=== PATIENT | female | born 1980 | race Hispanic/Latino ===

== ENCOUNTER 2017-12-18 08:06 | Day surgery (SDC) | payer OTHER ==
[~2017-12-18] VITALS: Ht 162.6 cm; Wt 82.6 kg
[~2017-12-18 08:06] MED LIST: ALEVE220 MG PO
[2017-12-18 08:59] VITALS: BP 103/51
[2017-12-18] MEDS ORDERED: ENDOCET 5-3251 EACH PO (10:41)
[2017-12-18 11:45] VITALS: BP 106/52
[2017-12-18 12:45] VITALS: BP 112/64
[2017-12-18 15:15] VITALS: BP 95/63
== END 2017-12-18 15:15 | disposition home or self-care (01) ==
LOC: SDC 08:06
PROC: 0UBC7ZX Excision of Cervix, Via Natural or Artificial Opening, Diagnostic (ICD-10-PCS; principal; 2017-12-18)
DX: D06.9 Carcinoma in situ of cervix, unspecified (principal); N94.6 Dysmenorrhea, unspecified; E66.9 Obesity, unspecified; Z68.31 Body mass index [BMI] 31.0-31.9, adult
CPT/HCPCS: 88305; J1100; J1885; J2250; J2405; J3010